=== PATIENT | female | born 2000 | race Two or more races ===

== ENCOUNTER 2023-05-20 05:53 | Emergency (ER) | payer BC, MEDICAID ==
[~2023-05-20] VITALS: Ht 172.7 cm; Wt 89.4 kg
[2023-05-20] MEDS ORDERED: CLIN50GE7 TP (06:25)
[2023-05-20 06:32] VITALS: BP 131/76; TEMP 98.1; O2SAT 98
== END 2023-05-20 06:32 | disposition home or self-care (01) ==
LOC: ER 05:57
DX: L70.9 Acne, unspecified (principal)

== ENCOUNTER 2023-09-09 22:32 | Emergency (ER) | payer BC ==
[~2023-09-09] VITALS: Ht 170.2 cm; Wt 83.9 kg
[~2023-09-09 22:32] MED LIST: CLIN50GE7 TP
[2023-09-09 23:04] VITALS: BP 116/85; TEMP 98; O2SAT 98
[2023-09-09] MEDS ORDERED: BENZ1LOZ58 PO (23:13)
[2023-09-09] MEDS ORDERED: PENI500T PO (23:13)
[2023-09-09] MEDS ORDERED: dexaMETHasone SOD PHOSPHATE 1 ML ONE (23:16)
[2023-09-09] MEDS ORDERED: dexaMETHasone SOD PHOSPHATE 10 MG/ML VIAL IV ONE (23:30)
== END 2023-09-09 23:29 | disposition home or self-care (01) ==
LOC: ER 22:34
DX: J02.9 Acute pharyngitis, unspecified (principal)
CPT/HCPCS: 99283; 96372; J1100

== ENCOUNTER 2023-09-11 07:44 | Emergency (ER) | payer BC ==
[~2023-09-11] VITALS: Ht 170.2 cm; Wt 66.7 kg
[~2023-09-11 07:44] MED LIST changes: +BENZ1LOZ58 PO; +PENI500T PO
[2023-09-11 07:50] VITALS: BP 127/64; TEMP 98.9; O2SAT 100
== END 2023-09-11 08:04 | disposition home or self-care (01) ==
LOC: ER 07:48
DX: J02.9 Acute pharyngitis, unspecified (principal); Z79.899 Other long term (current) drug therapy

== ENCOUNTER 2023-09-24 00:55 | Emergency (ER) | payer BC ==
[~2023-09-24] VITALS: Ht 170.2 cm; Wt 81.6 kg
[2023-09-24 01:25] VITALS: BP 126/88; TEMP 97.9; O2SAT 98
[2023-09-24] MEDS ORDERED: FLUCONAZOLE (100 MG) 100 MG TABLET PO ONE (02:00)
== END 2023-09-24 02:06 | disposition home or self-care (01) ==
LOC: ER 01:00
DX: J06.9 Acute upper respiratory infection, unspecified (principal); B37.9 Candidiasis, unspecified

== ENCOUNTER 2024-06-25 00:05 | Emergency (ER) | payer BC, MEDICAID ==
[~2024-06-25] VITALS: Ht 172.7 cm; Wt 74.8 kg
[2024-06-25] MEDS ORDERED: DOXY-326 PO (01:08)
[2024-06-25] MEDS ORDERED: ONDA4TAB5 PO (01:08)
[2024-06-25] MEDS ORDERED: LIDOCAINE 1% INJ 50 ML MDV IJ ONE (01:09)
[2024-06-25] MEDS ORDERED: CEFTRIAXONE 500 MG VIAL ONE (01:09)
[2024-06-25] MEDS: CEFTRIAXONE 1 G VIAL IM ONE (01:15)
[2024-06-25 01:37] LABS: PREGNANCY TEST URINE QUAL NEGATIVE (NEGATIVE)
[2024-06-25 02:40] VITALS: BP 120/88; TEMP 98.6; O2SAT 98
[2024-06-26 17:11] LABS: CHLAMYDIA TRACHOMATIS NAA Negative (Negative); NEISSERIA GONORRHOEAE NAA Negative (Negative)
== END 2024-06-25 02:30 | disposition home or self-care (01) ==
LOC: ER 00:05
DX: N72 Inflammatory disease of cervix uteri (principal); R53.1 Weakness; R10.2 Pelvic and perineal pain
CPT/HCPCS: 99284; 96372; 84703; 87210; 87491; 87591; J3490; J0696